=== PATIENT | male | born 1985 | race Caucasian/White ===

== ENCOUNTER 2019-09-10 13:06 | Emergency (ER) | payer OTHER ==
[2019-09-10 13:14] VITALS: BP 148/101
--- NOTE | 2019-09-10 13:34 | UC ---
Lower Extremity/Ankle HPI - HPI Summary HPI Summary: 33 yo male presents with LEFT agudelo wound. He tells me that about 1.5 weeks ago he hit the front of his agudelo on a food cart at work. Had a small abrasion to the area. Since that time has scabbed crusting yellow and has a red bump around it. Denies drainage, fever, streaking. No known hx of MRSA. tetanus within the last 5 years - History of Current Complaint Chief Complaint: UCLowerExtremity Stated Complaint: LEG INJURY Time Seen by Provider: 09/10/19 13:33 Hx Obtained From: Patient Onset/Duration: Gradual Onset Severity Initially: Mild Severity Currently: Mild Pain Intensity: 1 Pain Scale Used: 0-10 Numeric - Allergies/Home Medications Allergies/Adverse Reactions: Allergies Allergy/AdvReac Type Severity Reaction Status Date / Time No Known Allergies Allergy Verified 09/10/19 13:14 PMH/Surg Hx/FS Hx/Imm Hx GI/ History: Gastroesophageal Reflux - Surgical History Surgical History: Yes Surgery Procedure, Year, and Place: explo app - Family History Known Family History: Positive: Hypertension - Social History Occupation: Employed Full-time Lives: With Family Alcohol Use: Occasionally Substance Use Type: None Smoking Status (MU): Never Smoked Tobacco Review of Systems All Other Systems Reviewed And Are Negative: No Constitutional: Positive: Negative Skin: Positive: Other - Left agudelo wound Respiratory: Positive: Negative Cardiovascular: Positive: Negative Neurovascular: Positive: Negative Neurological: Positive: Negative Psychological: Positive: Negative Physical Exam - Summary Physical Exam Summary: GENERAL: NAD. WDWN. No pain distress. SKIN: LEFT AGUDELO: Lower anterior leg with 1.0cm area of healed scab with superior 1.0cm area of edema. NTTP. No streaking, induration, drainage, erythema. CHEST: No accessory muscle use. Breathing comfortably and in no distress. CV: Pulses intact. Cap refill <2seconds NEURO: Alert. PSYCH: Age appropriate behavior. Triage Information Reviewed: Yes Vital Signs: Initial Vital Signs Temp 98.1 F 09/10/19 13:10 Pulse 110 09/10/19 13:10 Resp 20 09/10/19 13:10 BP 148/101 09/10/19 13:10 Pulse Ox 100 09/10/19 13:10 Vital Signs Reviewed: Yes Lower Extremity Course/Dx - Course Course Of Treatment: ?wound inflammation vs infection. No indication for abscess at this time. Will treat with keflex and have him apply ice to the area. - Differential Dx/Diagnosis Provider Diagnosis: Leg wound, left Discharge ED - Sign-Out/Discharge Documenting (check all that apply): Patient Departure All imaging exams completed and their final reports reviewed: No Studies - Discharge Plan Condition: Stable Disposition: HOME Prescriptions: Cephalexin CAP* [Keflex CAP*] 500 mg PO TID #21 cap Patient Education Materials: Wound Infection (ED) Referrals: Bernardo Cuello MD [Primary Care Provider] - Additional Instructions: If you develop a fever, shortness of breath, chest pain, new or worsening symptoms - please call your PCP or go to the ED immediately. Your blood pressure was high at todays visit. Please see your primary provider within 4 weeks for recheck and re-evaluation. - Billing Disposition and Condition Condition: STABLE Disposition: Home
== END 2019-09-10 14:06 | disposition home or self-care (01) ==
LOC: UCEAST 13:06
DX: S80.922A Unspecified superficial injury of left lower leg, initial encounter (principal); W22.8XXA Striking against or struck by other objects, initial encounter; Y92.9 Unspecified place or not applicable; Y99.0 Civilian activity done for income or pay
CPT/HCPCS: 99212; G0463